=== PATIENT | female | born 1975 | race Caucasian/White ===

== ENCOUNTER → 2016-05-04 | Outpatient (CLI) | payer OTHER ==
--- NOTE | 2016-05-04 15:10 | MAMMOGRAPHY REPORT ---
THIS REPORT HAS BEEN AMENDED. BILATERAL DIGITAL DIAGNOSTIC MAMMOGRAM TOMOSYNTHESIS AND TARGETED BILATERAL ULTRASOUND: 05/04/2016 CLINICAL HISTORY: Bilateral Asymmetries. Left calcifications. TECHNIQUE: Spot magnification left CC, MLO, spot compression CC and MLO tomosynthesis images of the right breast were obtained. COMPARISON: Comparison is made to exam dated: 04/27/2016 mammogram - [facility]. BREAST COMPOSITION: There are scattered areas of fibroglandular density in both breasts. FINDINGS: Spot magnification views of the left breast demonstrate a small 1.5 mm cluster of punctat e microcalcifications in the 3:00 anterior breast. There is a benign popcorn calcification in the a pproximate 4:00 left breast. A circumscribed 8mm mass is identified in the 1:00 anterior left breas t for which further evaluation with ultrasound was performed. There is effacement of the questionab le mass with associated distortion in the medial right breast on the spot compression CC view. No p ersistent architectural distortion is seen on the spot compression CC or MLO tomosynthesis images of the right breast. Further evaluation with ultrasound was performed. Real-time high resolution sonographic evaluation was performed in the medial right breast and latera l left breast. A few scattered cysts are seen within the medial right breast. In particular, in th e 12:00 axis, 2 cm from the nipple, there is an oval circumscribed anechoic cyst measuring 5 mm. No suspicious solid mass is seen in the right medial breast. In the left 1:00 periareolar breast, the re is a circumscribed rounded hypoechoic solid-appearing mass measuring 6.5 x 5.0 x 7.0 mm. 2-3 abu tting anechoic cysts are seen in the left 2:00 breast, 9 cm from the nipple, measuring 10.8 x 4.7 x 9.7 mm in conglomerate. A lobulated and angular solid mass is identified in the 2:00 left breast, 4 cm from the nipple, measuring 11.1 x 6.9 x 13.4 mm. Another mass was thought to be seen in the ret roareolar breast, but this is simply felt to represent the same solid mass seen in the 1:00 periareo lar breast in a different position. IMPRESSION: ACR BI-RADS CATEGORY 4B: INTERMEDIATE SUSPICION FOR MALIGNANCY, TARGETED ULTRASOUND ACR BI-RADS CATEGORY 4B: INTERMEDIATE SUSPICION FOR MALIGNANCY 1. Ultrasound guided core needle biopsy is recommended for a solid, lobulated and angular mass in t he 2:00 left breast, 4 cm from the nipple. This could represent a fibroadenoma and pending benign p athology results, would follow the other solid mass in the 1:00 periareolar left breast in 6 months to ensure stability, as that most likely represents an additional fibroadenoma. 2. At the time of short follow-up in the left breast, repeat spot magnification views should be per formed for a small, 1.5 mm cluster of benign appearing punctate microcalcifications in the anterior left breast, and for an effacing asymmetry with possible distortion in the medial right breast. These results and recommendations were discussed with the patient at the time of the exam. She tent atively scheduled the biopsy and follow-up appointment prior to leaving our department. Approximately 10% of breast cancers are not detected with mammography. A negative mammographic repor t should not delay biopsy if a clinically suggestive mass is present. Estefanía Fontenot M.D. ay/:05/04/2016 12:36:00 Furniture Dipper: Marcie Toure RT(R)(M), [facility] letter sent: Abnormal 4/5 BI-RADS Code: ACR BI-RADS Category 4B: Intermediate Suspicion For Malignancy Ultrasound BI-RADS: AC R BI-RADS Category 4B: Intermediate Suspicion For Malignancy AMENDMENT: 05/19/2016 Estefanía Fontenot M.D. Pathology from the ultrasound-guided core biopsy of a solid mass in the 2:00 left breast yielded a f ibroadenoma. Negative for malignancy. The pathology results are concordant with the imaging appear ance. As per previous diagnostic mammogram recommendations, a short interval follow-up targeted ult rasound as well as repeat spot magnification views are recommended in 6 months in the left breast fo r other findings. Amended BI-RADS: ACR-BI-RADS Category 3: Probably Benign
== END | disposition home or self-care (01) ==
LOC: C.MAMM 09:49
PROVIDERS: ATTEND Internal Medicine
DX: R92.0 Mammographic microcalcification found on diagnostic imaging of breast (principal); N63 Unspecified lump in breast

== ENCOUNTER → 2016-05-10 | Outpatient (CLI) | payer OTHER ==
--- NOTE | 2016-05-10 11:57 | Discharge Instructions ---
Discharge Instructions Procedure Procedure Date: May 10, 2016. Reason for visit: Left Mass. Discharge Discharge Date: May 10, 2016. Discharge Diagnosis: post left breast ultrasound guided core biopsy Medications Restart Stopped Medication(s): May restart Excedrin Instructions Activity Recommendations: Additional Limitations (see below) Return to School/Work: no limitations Recommended Home Diet: No Limitations Provider Instructions: ACTIVITY RECOMMENDATIONS: * No lifting, pushing, pulling or exercising the affected side for three days. RETURN TO SCHOOL/WORK: * You may return to work/school after the procedure, but do not perform any strenuous activities for 24 to 48 hours. MEDICATIONS: * Tylenol (two 325 mg) every four to six hours if needed for mild pain (if not allergic to Tylenol). DIET: * Resume previous diet. SPECIAL CARE INSTRUCTIONS: * Keep biopsy site dry for 24 hours. May shower after 24 hours, but do not soak (bathe) incision. * May remove Tegaderm (plastic patch) tomorrow AFTER showering. * Leave the steri-strips on for one week. Allow the steri-strips to fall off by themselves. If not off after one week, you may remove them. You may place a Bandaid crosswise over the strips, if desired. * Apply ice 10 minutes on and 10 minutes off as needed. * Wear a bra at bedtime to sleep more comfortably for 2-3 days. * Your referring physician should have the results after approximately 5 to 7 business days. * Call for unusual bleeding, fever, drainage, etc or if you have any questions call [phone] during normal business hours or after hours call Dr Fontenot, . FOLLOW UP VISIT: Follow-up with Referring Physician as scheduled. Goran Matthews Recommendations: Call your doctor if: * Temperature above 101 degrees * Pain not relieved by pain medicine ordered * There is increased drainage or redness from any incision * You have any unanswered questions or concerns. Your Doctors Instructions noted above were prepared by provider Estefanía Fontenot. Patient Signature Section: Patient Instructions Signature Page Maura Perez Patient (or Guardian) Signature/Date: I have read and understand the instructions given to me by my caregivers. Caregiver/RN/Doctor Signature/Date: The above-named patient and/or guardian has received patient instructions on this date. + Original Patient Signature Page (only) stays with chart. Please make copy for patient.
--- NOTE | 2016-05-10 14:54 | MAMMOGRAPHY REPORT ---
ULTRASOUND GUIDED BIOPSY LEFT BREAST: 05/10/2016 CLINICAL HISTORY: Indeterminate solid lobulated hypoechoic 13 mm mass in the 2:00 left breast. Batsheva ent presents for ultrasound-guided core needle biopsy. COMPARISON: Comparison is made to exams dated: 05/04/2016 ultrasound, 05/04/2016 mammogram, and 016 mammogram - [facility]. PATIENT CONSENT: The procedure, risks and benefits were discussed with the patient and informed writ ten consent was obtained. Specific risks to this procedure include: bleeding, infection, puncture of adjacent structure, nontargeted biopsy, sampling error and medication reaction. PROCEDURE DESCRIPTION: A time out was performed and the left breast was agreed as the site of biopsy . The skin was prepped and draped in the usual sterile fashion. The solid lobulated and angular hypo echoic mass in the 2:00 left breast was chosen as the target for biopsy. Subcutaneous and intraparen chymal 1% buffered lidocaine, with and without epinephrine, was administered as local anesthesia. A skin incision was made. Through the incision, 4 samples were taken with a 14 gauge Achieve biopsy d evice. A metallic marker was placed at the biopsy site. Hemostasis was achieved after manual tara isaak. The patient tolerated the procedure well and there was no immediate complication. The samples were sent to the pathology department in an appropriately labeled container. Postprocedure left CC and ML views were obtained. There is a ribbon shaped metallic biopsy marker a ssociated with a mass in the 2:00 middle one third of the breast. A second smaller partially circum scribed 7 mm mass is seen in the upper outer anterior breast, likely representing the solid-appearin g mass in the 1:00 periareolar/retroareolar left breast seen on recent ultrasound. Pending benign p athology results, a short interval follow-up left mammogram and repeat targeted ultrasound is recomm ended to ensure stability in 6 months. IMPRESSION: ULTRASOUND GUIDED BIOPSY Status post ultrasound guided core needle biopsy of a solid mass in the 2:00 left breast, with biops y marker placed at the site. Pending benign pathology results, a follow-up mammogram and an ultrasound in 6 months is recommended to demonstrate stability of the other solid-appearing mass in the retroareolar breast. The patient will receive notification of the biopsy results from her referring physician. Estefanía Fontenot M.D. ay/:05/10/2016 12:10:35 Attending Technologist: Renée TANG)(Cong), [facility] Space Operations: Dr. Estefanía Fontenot, [facility]
--- NOTE | 2016-05-10 14:56 | MAMMOGRAPHY REPORT ---
UNILATERAL LEFT DIGITAL DIAGNOSTIC MAMMOGRAM: 05/10/2016 CLINICAL HISTORY: Status post ultrasound guided core biopsy of a solid lobulated mass in the 2:00 le ft breast. Please refer to the report from left breast ultrasound guided core biopsy performed at the same time for full detail. IMPRESSION: POST PROCEDURE IMAGING FOR MARKER PLACEMENT Please refer to the report from left breast ultrasound guided core biopsy performed at the same time for full detail. Approximately 10% of breast cancers are not detected with mammography. A negative mammographic repor t should not delay biopsy if a clinically suggestive mass is present. Estefanía Fontenot M.D. ay/:05/10/2016 12:07:50 Tongue Trimmer: Renée HARRIS(Raj)(M), [facility] BI-RADS Code: Post Procedure Imaging For Marker Placement
== END | disposition home or self-care (01) ==
LOC: C.MAMM 11:04
PROVIDERS: ATTEND Internal Medicine
DX: D24.2 Benign neoplasm of left breast (principal)

== ENCOUNTER → 2016-06-11 | Outpatient (CLI) | payer OTHER ==
[2016-06-11 12:47] LABS: BLOOD UREA NITROGEN 18 mg/dl (7-18); CALCIUM 9.2 mg/dl (8.5-10.1); CARBON DIOXIDE 24 mmol/L (21-32); CHLORIDE 108 mmol/L (98-107); CREATININE 0.86 mg/dl (0.60-1.20); GLUCOSE 92 mg/dl (70-99); SODIUM 142 mmol/L (136-145)
[2016-06-11 12:57] LABS: THYROID STIMULATING HORMONE 0.086 uIu/ml (0.300-4.500)
[2016-06-11 13:16] LABS: ESTIMATED AVERAGE GLUCOSE 120 mg/dl; HA1C FLAG Normal (Normal)
== END | disposition home or self-care (01) ==
LOC: C.LAB 11:01
PROVIDERS: ATTEND Internal Medicine
DX: R73.01 Impaired fasting glucose (principal); E06.3 Autoimmune thyroiditis

== ENCOUNTER → 2016-09-15 | Outpatient (CLI) | payer OTHER | END | disposition home or self-care (01) | LOC: C.LAB 11:13 | PROVIDERS: ATTEND Internal Medicine | DX: E06.3 Autoimmune thyroiditis (principal) ==

== ENCOUNTER → 2016-11-01 | Outpatient (CLI) | payer OTHER ==
--- NOTE | 2016-11-01 15:19 | MAMMOGRAPHY REPORT ---
BILATERAL DIGITAL DIAGNOSTIC MAMMOGRAM TOMOSYNTHESIS WITH CAD AND TARGETED BILATERAL ULTRASOUND: 2016 CLINICAL HISTORY: 41-year-old woman presents for follow-up in each breast. On her baseline mammogram s she was found to have masses and calcifications in the left breast, an asymmetry with questionable distortion in the right breast. The largest solid-appearing mass in the left breast was biopsied and yielded a benign fibroadenoma. TECHNIQUE: Bilateral CC and MLO 2-D digital and tomosynthesis images, 2-D right CC, spot magnificatio n left CC and ML, spot compression right CC 2-D digital and tomosynthesis images were obtained. Curr ent study was also evaluated with a Computer Aided Detection (CAD) system. COMPARISON: Comparison is made to exams dated: 05/10/2016 mammogram, 05/10/2016 ultrasound biopsy, 017 ultrasound, 05/04/2016 mammogram, and 04/27/2016 mammogram - [facility]. BREAST COMPOSITION: The tissue of both breasts is heterogeneously dense, which may obscure small mas ses. FINDINGS: There is an asymmetry with question of architectural distortion in the right central breas t, 7 cm distal to the nipple on the CC view. This partially effaces with the additional right X CCL view and spot compression right CC view. On the corresponding tomosynthesis images of the spot compr ession right CC view there is no definite corresponding architectural distortion. Further evaluation with ultrasound was performed. No new mass, developing asymmetry, focal architectural distortion or suspicious calcifications are seen in the right breast. At least 3 circumscribed and lobulated masses are again seen in the lateral left breast. The largest 11 mm mass in the middle one third of the lateral left breast has an associated ribbon-shaped biopsy marker clip. The posterior lateral mass measures 12 x 8 mm, and the anterior lateral mass measures 7.5 mm. All of these masses appear similar to the prior mammograms. There is a small grouping of pu nctate microcalcifications in the anterior subareolar left breast measuring approximately 2.1 mm. Th anamaria are unchanged comparing to the spot magnification views obtained 05/04/2016 and most likely repre sent benign fibrocystic changes. No new mass, architectural distortion or suspicious calcifications are seen in the left breast. Targeted ultrasound was performed in both breasts. In the 12:00 right breast, 6 in meters from the n ipple, there is a lobulated cyst with thin internal nonvascular septation, measuring 7.2 x 3.4 mm. A nother cyst versus 2 adjacent cysts are identified in the 12:00 right breast, 3 cm from the nipple, m easuring 5.4 x 4.0 mm. These cysts are likely contributing to the asymmetry seen mammographically on the right CC view and are benign. No other suspicious solid or cystic mass is seen in the right johnny ast retroareolar region or 6:00/5:00 axis. However, another follow-up diagnostic right mammogram and possible repeat ultrasound is recommended to ensure longer stability. In the left 12:00 breast, 2 cm from the nipple, there is a lobulated cyst with internal nonvascular s eptation measuring 4.9 x 4.4 x 5.0 mm. In the 1:00 periareolar left breast, there is a solid hypoech oic mass measuring 6.7 x 4.9 x 7.7 mm, this previously measured 6.5 x 5.0 x 7.0 mm and is unchanged. A lobulated cyst is seen in the 2:00 left breast, 9 cm from the nipple, measuring 10.7 x 5.0 x 10.3 mm, previously measured 10.8 x 4.7 x 9.7 mm. This is slightly larger but given the cystic nature is considered benign. A lobulated solid mass with internal biopsy marker clip is again seen in the 2:00 left breast, 4 cm from the nipple, measuring 9.3 x 6.9 x 11.0 mm, previously measured 11.1 x 6.9 x 1 3.4 mm. This is probably stable in size, given slight differences in measuring technique. IMPRESSION: ACR-BI-RADS CATEGORY 3: PROBABLY BENIGN, TARGETED ULTRASOUND ACR-BI-RADS CATEGORY 3: PRO BABLY BENIGN 1. There are fluctuating cysts but stable benign-appearing solid masses in the left breast 1:00 and 2:00 axes. Another short interval follow-up diagnostic left mammogram including tomosynthesis images and repeat targeted ultrasound is recommended to ensure longer stability. 2. An asymmetry in the middle one third of the right breast, along the posterior nipple line on the CC view has no definite architectural distortion on the corresponding tomosynthesis images, and no brewer spicious sonographic correlate. A few cysts were identified in the 12:00 right breast on ultrasound, which may be contributing to the appearance. Another short interval follow-up diagnostic right mamm ogram including tomosynthesis images and possible repeat ultrasound is recommended to ensure stabilit y in 6 months. 3. There is a stable small grouping of punctate microcalcifications in the anterior subareolar left breast. Although these most likely represent benign fibrocystic changes, another six-month follow-up diagnostic mammogram including spot magnification views is recommended to ensure longer stability. These results and recommendations were discussed with the patient at the time of the exam. Approximately 10% of breast cancers are not detected with mammography. A negative mammographic report should not delay biopsy if a clinically suggestive mass is present. Estefanía Fontenot M.D. ay/:11/01/2016 12:43:26 Manager Welding: Vida HARRIS(R)(Cong), [facility] letter sent: Follow Up Recommended 3 BI-RADS Code: ACR-BI-RADS Category 3: Probably Benign Ultrasound BI-RADS: ACR-BI-RADS Category 3: Pr obably Benign
== END | disposition home or self-care (01) ==
LOC: C.MAMM 08:35
PROVIDERS: ATTEND Internal Medicine
DX: N63 Unspecified lump in breast (principal); N64.89 Other specified disorders of breast; R92.0 Mammographic microcalcification found on diagnostic imaging of breast

== ENCOUNTER → 2017-01-11 | Outpatient (CLI) | payer OTHER ==
[2017-01-11 10:21] LABS: CHOLESTEROL/HDL RATIO 3.7; THYROID STIMULATING HORMONE 0.213 uIu/ml (0.300-4.500)
== END | disposition home or self-care (01) ==
LOC: C.LAB 08:19
PROVIDERS: ATTEND Internal Medicine
DX: Z00.00 Encounter for general adult medical examination without abnormal findings (principal); E04.2 Nontoxic multinodular goiter

== ENCOUNTER → 2017-03-18 | Outpatient (CLI) | payer OTHER | END | disposition home or self-care (01) | LOC: C.LAB 07:48 | PROVIDERS: ATTEND Internal Medicine | DX: E04.2 Nontoxic multinodular goiter (principal) ==

== ENCOUNTER → 2017-05-10 | Outpatient (CLI) | payer OTHER ==
--- NOTE | 2017-05-11 15:32 | MAMMOGRAPHY REPORT ---
BILATERAL DIGITAL DIAGNOSTIC MAMMOGRAM TOMOSYNTHESIS WITH CAD AND TARGETED BILATERAL ULTRASOUND: 2017 CLINICAL HISTORY: 42-year-old woman presents for follow-up in both breasts. Reassess microcalcificat ions in the anterior left breast, asymmetry in the retroareolar versus slightly medial right breast, and the sonographic findings in the left breast. She has a history of prior ultrasound-guided core b iopsy of a mass in the 2:00 to 3:00 left breast, which yielded benign pathology. TECHNIQUE: Bilateral breast tomosynthesis in addition to standard 2D mammography was performed. Spot magnification left CC and ML views were also obtained. Current study was also evaluated with a Comp uter Aided Detection (CAD) system. COMPARISON: Comparison is made to exams dated: 11/01/2016 ultrasound, 11/01/2016 mammogram, 05/10/2016 hawa mogram, 05/10/2016 ultrasound biopsy, 05/04/2016 mammogram, and 04/27/2016 mammogram - [facility]. BREAST COMPOSITION: The tissue of both breasts is heterogeneously dense, which may obscure small mas ses. FINDINGS: The glandular pattern is similar to prior mammograms. The asymmetry in the middle one thir d of the right breast along the posterior nipple line on the CC view versus slightly medial right johnny ast is stable to slightly less conspicuous comparing to the October 2016 mammograms, and stable comparin g to the 04/27/2016 mammograms, suggesting it represents the patient's baseline pattern. There is fl uctuating nodularity in the superior posterior right breast on the MLO view, which could represent fl uctuating cysts although further evaluation with ultrasound was performed. No suspicious spiculated or irregular mass, focal area of architectural distortion or new suspicious microcalcifications are s een in the right breast. There is a stable ribbon-shaped biopsy marker clip in the 3:00 left breast, and stable popcorn calcif ication in the central left breast. A small grouping of punctate microcalcifications in the lower ou ter anterior left breast is stable dating back to spot magnification views obtained on 05/04/2016 and most likely benign. However, another 12 month follow-up diagnostic mammogram including spot magnifi cation views is recommended to ensure longer stability. No obvious new mass, architectural distortio n or new cluster of microcalcifications is seen in the left breast. Targeted ultrasound was performed in the left upper outer quadrant. In the 1:00 left breast, 8 cm fr om the nipple, there is a predominantly anechoic parallel circumscribed mass with posterior acoustic enhancement, most likely representing a, located cyst, measuring 6.7 x 3.8 x 6.6 mm. A circumscribed solid mass is again seen in the 1:00 periareolar left breast measuring 6.0 x 5.3 x 7.7 mm. This is unchanged dating back to 05/04/2016 at which time it measured 6.5 x 5.0 x 7.0 mm. A cyst with thin i nternal nonvascular septation is identified in the 2:00 left breast, 9 cm from the nipple, measuring 5.9 x 3.6 x 5.7 mm. A lobulated solid mass with internal biopsy marker clip is again seen in the 2:0 0 left breast, 4 cm from the nipple, measuring 9.0 x 7.0 x 11.7 mm. This represents the biopsy-prove n fibroadenoma. Scattered anechoic cysts are seen throughout the superior right breast on targeted u ltrasound, notably within the 12:00, 1:00, 9:00 and 11:00 axes. No suspicious solid masses seen in t he superior right breast on targeted ultrasound. IMPRESSION: ACR-BI-RADS CATEGORY 3: PROBABLY BENIGN, TARGETED ULTRASOUND ACR-BI-RADS CATEGORY 3: PRO BABLY BENIGN 1. Stable mammographic appearance of the breasts including a stable asymmetry in the right breast an d stable punctate grouped microcalcifications in the anterior left breast. Another 12 month follow-u p bilateral diagnostic tomosynthesis mammogram including spot magnification views of the left breast is recommended to ensure at least 2 years of stability to confirm benignity. 2. Stable sonographic appearance of the left breast including a biopsy proven benign mass in the 2:0 0 axis and similar yet smaller benign-appearing circumscribed solid mass in the 1:00 left breast. An other 12 month follow-up targeted ultrasound is recommended to ensure at least 2 years of stability t o confirm benignity. 3. Slight increased nodularity in the superior posterior right breast on the MLO view is likely due to fluctuating cysts, as numerous anechoic simple cysts were seen throughout the superior right breas t on targeted ultrasound. These results and recommendations were discussed with the patient at the time of the exam. She tenta tively scheduled a 12 month follow-up appointment prior to leaving our department. Approximately 10% of breast cancers are not detected with mammography. A negative mammographic report should not delay biopsy if a clinically suggestive mass is present. Estefanía Fontenot M.D. ay/:05/10/2017 16:49:56 Lead Oxide Mill Tender: Vida HARRIS(Raj)(M), [facility] letter sent: Follow Up Recommended 3 BI-RADS Code: ACR-BI-RADS Category 3: Probably Benign Ultrasound BI-RADS: ACR-BI-RADS Category 3: Pr obably Benign
== END | disposition home or self-care (01) ==
LOC: C.MAMM 09:02
PROVIDERS: ATTEND Internal Medicine
DX: N64.89 Other specified disorders of breast (principal); R92.0 Mammographic microcalcification found on diagnostic imaging of breast

== ENCOUNTER → 2017-05-11 | Outpatient (CLI) | payer OTHER | END | disposition home or self-care (01) | LOC: C.LAB 07:34 | PROVIDERS: ATTEND Internal Medicine | DX: R10.2 Pelvic and perineal pain (principal) ==

== ENCOUNTER → 2017-05-30 | Outpatient (CLI) | payer OTHER ==
[2017-05-30 10:41] LABS: BASO % 0.3 %; BASO ABS # 0.04 K/uL (0-0.2); EOS ABS # 0.26 K/uL (0-0.5); HEMATOCRIT 44.2 % (37-47); HEMOGLOBIN 14.6 g/dL (12.0-16.0); IG# 0.04 K/uL (0.00-0.02); LYMPH % 16.8 %; LYMPH ABS # 2.22 K/uL (1.2-3.4); MEAN CORPUSCULAR HEMOGLOBIN 29.1 pg (25-34); MONO ABS # 0.92 K/uL (0.11-0.59); NEUT % 73.6 %; NEUT ABS # 9.71 K/uL (1.4-6.5); PLATELET COUNT 299 K/uL (130-400); RED CELL DISTRIBUTION WIDTH CV 13.8 % (11.5-14.5); RED CELL DISTRIBUTION WIDTH SD 44.7 fL (36.4-46.3); WHITE BLOOD COUNT 13.19 K/uL (4.8-10.8)
[2017-05-30 10:59] LABS: ALBUMIN 3.9 gm/dl (3.4-5.0); ALKALINE PHOSPHATASE 78 U/L (45-117); ALT/SGPT 28 U/L (12-78); AST/SGOT 14 U/L (15-37); BLOOD UREA NITROGEN 25 mg/dl (7-18); CALCIUM 8.9 mg/dl (8.5-10.1); CARBON DIOXIDE 24 mmol/L (21-32); CREATININE 0.76 mg/dl (0.60-1.20); GLUCOSE 104 mg/dl (70-99); POTASSIUM 4.1 mmol/L (3.5-5.1); SODIUM 136 mmol/L (136-145); TOTAL PROTEIN 8.3 gm/dl (6.4-8.2)
[2017-05-30 11:10] LABS: CHOLESTEROL 162 mg/dl (0-200); LDL CHOLESTEROL CALCULATED 95 mg/dl; PHOSPHORUS 2.1 mg/dl (2.5-4.9)
[2017-05-30 11:28] LABS: HEMOGLOBIN A1C 5.4 % (4.5-5.6)
== END | disposition home or self-care (01) ==
LOC: C.LAB 09:20
PROVIDERS: ATTEND Internal Medicine
DX: Z13.220 Encounter for screening for lipoid disorders (principal); E55.9 Vitamin D deficiency, unspecified; K90.0 Celiac disease; R73.01 Impaired fasting glucose; E06.3 Autoimmune thyroiditis

== ENCOUNTER → 2017-09-20 | Outpatient (CLI) | payer OTHER | END | disposition home or self-care (01) | LOC: C.LAB 14:58 | PROVIDERS: ATTEND Psychiatry & Neurology Neurology | DX: G25.81 Restless legs syndrome (principal) ==

== ENCOUNTER → 2017-09-22 | Outpatient (CLI) | payer OTHER ==
--- NOTE | 2017-09-22 16:10 | DIAGNOSTIC IMAGING REPORT ---
Brain MRI WITHOUT CONTRAST HISTORY: R51 Worsening headaches TECHNIQUE: Multiplanar multisequence MRI of the brain was performed without the use of contrast. COMPARISON STUDY: None. FINDINGS: There are no areas of restricted diffusion to suggest acute infarction. The midline structures are intact. Small retention cyst within the right sphenoid sinus. No fluid levels within the paranasal sinuses. The mastoid air cells are clear. The ventricles and sulci are within normal limits for age. There is no mass, hematoma, midline shift. The major vascular flow-voids at the skull base are well maintained. IMPRESSION: No acute intracranial abnormality. Electronically signed by: Robinson Carrizales M.D. 09/22/2017 4:08 PM Dictated Date/Time: 09/22/2017 4:01 PM
== END | disposition home or self-care (01) ==
LOC: C.MRI 14:52
PROVIDERS: ATTEND Psychiatry & Neurology Neurology
DX: R51 Headache (principal)